=== PATIENT | female | born 1950 | race Caucasian/White ===

== ENCOUNTER 2017-04-22 15:25 | Emergency (ER) | payer MEDICARE, BC ==
--- NOTE | 2017-04-22 17:38 | EDM.PDOC ---
ED HPI GENERAL MEDICAL PROBLEM - General Chief Complaint: Skin Complaint Stated Complaint: L KNEE BLEEDING AFTER SURGERY 04/10 Time Seen by Provider: 04/22/17 15:50 Source of Information: Reports: Patient History Limitations: Reports: No Limitations - History of Present Illness INITIAL COMMENTS - FREE TEXT/NARRATIVE: pt had her knee scoped and she now has bleeding from the site. There was one stitch that was removed and after that the bleeding seemed to cease. Onset: Gradual, Other (pt has had stitches removed and one stitch stayed in the wound. ) Duration: Hour(s): Location: Reports: Lower Extremity, Left Associated Symptoms: Reports: No Other Symptoms Left Knee Pain Score (Numeric/FACES): 10 - Related Data Allergies Allergy/AdvReac Type Severity Reaction Status Date / Time procaine HCl [From Novocain] Allergy Severe Anaphylactic Verified 02/06/15 12:05 Shock lovastatin [From Mevacor] Allergy Unknown muscle pain Verified 02/06/15 12:05 pravastatin Allergy Unknown muscle pain Verified 02/06/15 12:05 simvastatin Allergy Unknown muscle pain Verified 02/06/15 12:05 acetaminophen Allergy unknown Verified 02/06/15 12:05 [From Darvocet-N] garlic Allergy unknown Verified 02/06/15 12:05 ibuprofen Allergy unknown Verified 02/06/15 12:05 levofloxacin [From Levaquin] Allergy unknown Verified 02/06/15 12:05 meperidine HCl [From Demerol] Allergy unknown Verified 02/06/15 12:05 Penicillins Allergy unknown Verified 02/06/15 12:05 prochlorperazine edisylate Allergy unknown Verified 02/06/15 12:05 [From Compazine] prochlorperazine maleate Allergy unknown Verified 02/06/15 12:05 [From Compazine] propoxyphene napsylate Allergy unknown Verified 02/06/15 12:05 [From Darvocet-N] red dye Allergy unknown Verified 02/06/15 12:05 Sulfa (Sulfonamide Allergy unknown Verified 02/06/15 12:05 Antibiotics) Glycerin Allergy Severe Anaphylactic Uncoded 02/06/15 12:05 Shock Diagnositc X-ray Materials Allergy unknown Uncoded 02/06/15 12:05 Home Meds: Home Meds Acetaminophen 02/07/15 [History] Albuterol Sulfate 02/07/15 [History] Citalopram Hydrobromide 02/07/15 [History] Diphenhydramine Hcl 02/07/15 [History] Fluticasone Propionate 02/07/15 [History] Loratadine 02/07/15 [History] Losartan Potassium 02/07/15 [History] Metronidazole 02/07/15 [History] Montelukast Sodium 02/07/15 [History] Olopatadine Hcl 02/07/15 [History] Ondansetron 02/07/15 [History] Pantoprazole Sodium 02/07/15 [History] Past Medical History HEENT History: Reports: Otitis Media, Other (See Below) Other HEENT History: Increased sensitivity to light and sound since concussion Cardiovascular History: Reports: Hypertension Respiratory History: Reports: None Gastrointestinal History: Reports: Other (See Below) Other Gastrointestinal History: Laryngeal/pharyngeal muscles dilitated due to increased constricture Genitourinary History: Reports: None 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: Musculoskeletal History: Reports: Fibromyalgia Neurological History: Reports: Concussion, Head Trauma Psychiatric History: Reports: Anxiety, Depression, PTSD Endocrine/Metabolic History: Reports: Diabetes, Type II, Other (See Below) Other Endocrine/Metabolic History: [place] diabetes Immunologic History: Reports: None Oncologic (Cancer) History: Reports: None Dermatologic History: Reports: None - Infectious Disease History Infectious Disease History: Reports: Chicken Pox, Measles, Mumps - Past Surgical History Head Surgeries/Procedures: Reports: None GI Surgical History: Reports: Esophageal Dilatation Social & Family History - Tobacco Use Smoking Status *Q: Never Smoker - Caffeine Use Caffeine Use: Reports: None - Recreational Drug Use Recreational Drug Use: No ED ROS GENERAL - Review of Systems Review Of Systems: See Below Constitutional: Reports: No Symptoms HEENT: Reports: No Symptoms Respiratory: Reports: No Symptoms Cardiovascular: Reports: No Symptoms Endocrine: Reports: No Symptoms GI/Abdominal: Reports: No Symptoms : Reports: No Symptoms Musculoskeletal: Reports: Other ( bleeding from th left knee) ED EXAM, SKIN/RASH Exam: See Below Text/Narrative:: pt [place] bleeding from where the left knee was scoped. Extremities: Other (left knee wound still had one stitch in place. This was removed and there did not appear to be more bleeding. ) Course - Vital Signs Last Recorded V/S: Last Vital Signs Temp 36.5 C 04/22/17 15:44 Pulse 93 04/22/17 15:44 Resp 18 04/22/17 15:44 BP 148/75 H 04/22/17 15:44 Pulse Ox 94 L 04/22/17 15:44 Departure - Departure Time of Disposition: 17:39 Disposition: Home, Self-Care 01 Condition: Fair Clinical Impression: Encounter for wound re-check - Discharge Information Referrals: Emma Haas MD [Primary Care Provider] - Care Plan Goals: keep wound covered , rtc if further bleeding.
== END 2017-04-22 17:50 | disposition home or self-care (01) ==
LOC: JP.ED 15:25
DX: Z48.817 Encounter for surgical aftercare following surgery on the skin and subcutaneous tissue (principal); Z88.8 Allergy status to other drugs, medicaments and biological substances; Z91.018 Allergy to other foods; Z88.0 Allergy status to penicillin; Z88.1 Allergy status to other antibiotic agents; Z88.2 Allergy status to sulfonamides; I10 Essential (primary) hypertension; E11.9 Type 2 diabetes mellitus without complications
CPT/HCPCS: 99283